=== PATIENT | male | born 1970 | race Caucasian/White ===

== ENCOUNTER 2017-02-12 17:28 | Emergency (ER) | payer SELFPAY ==
[~2017-02-12] VITALS: Ht 180.3 cm; Wt 68.0 kg
[2017-02-12 17:29] VITALS: BP 120/77; PULSE 123; RESP 13; TEMP 99.8; O2SAT 98
[2017-02-12] MEDS ORDERED: SODIUM CHLOR 0.9% 1000 ML INJ 1,000 ML IV SCH (18:50)
--- NOTE | 2017-02-12 18:55 | PD ---
HPI Chief Complaint: Abdominal Pain Time Seen by Provider: 18:32 Travel History International Travel<30 days: No Contact w/Intl Traveler<30days: No Traveled to known affect area: No History of Present Illness HPI The patient is a 46-year-old male who presents emergency department for abdominal pain. Patient has a two-week history of right sided flank pain that is sharp, constant, occasionally worse with bending over, and assisted with nausea and vomiting. The patient denies any diarrhea or change in bowel habits. The patient's last bowel movement was 2 days ago, normal per patient's report. Patient does complain of "tea-colored urine "as well as mild dysuria. The patient denies any history of kidney stones, does have a history of hepatitis C from prior IVDA. The patient denies any fever, chills, or sweats. The patient does have a history of similar abdominal pain 3-4 years ago and states he was admitted to the hospital for 40 days, had multiple tests performed there is no definitive reason for his abdominal pain. The patient does not currently have a primary physician. He denies any associated chest pain or shortness of breath. PFSH Past Medical History Hx Anticoagulant Therapy: No Arthritis: Yes Depression: Yes Cancer: No Cardiovascular Problems: Yes (HIGH BP) Chemotherapy: No Cirrhosis: Yes Cerebrovascular Accident: No Diabetes: No Diminished Hearing: No Endocrine: No Gastrointestinal Disorders: Yes (JAUNDICE; COLONIC MASS; FATTY LIVER) GERD: Yes Genitourinary: No Hepatitis: Yes (B) Hypertension: Yes Immune Disorder: No Musculoskeletal: No Neurologic: No Psychiatric: No Respiratory: No Immunizations Current: Yes Past Surgical History Abdominal Surgery: Yes (REPAIR FROM LACERATION) Other Surgery: Yes (TUBE PLACED IN ABDOMEN TO DRAIN FLUID) Social History Alcohol Use: No Tobacco Use: Yes Substance Use: No Allergies-Medications (Allergen,Severity, Reaction): Coded Allergies: No Known Allergies (Unverified , 02/12/17) Reported Meds & Prescriptions Reported Meds & Active Scripts Active No Active Prescriptions or Reported Medications Review of Systems Except as stated in HPI: all other systems reviewed are Neg General / Constitutional: No: Fever Cardiovascular: No: Chest Pain or Discomfort Respiratory: No: Shortness of Breath Gastrointestinal: Positive: Nausea, Vomiting, Abdominal Pain, No: Diarrhea, Constipation, Changes in Bowel Habits Genitourinary: Positive: Dysuria, Other (dark-colored urine) Musculoskeletal: No: Weakness Skin: No Rash Physical Exam Narrative GENERAL: Awake, alert, pleasant 46-year-old male who appears his stated age and is in no acute respiratory distress. SKIN: Focused skin assessment warm/dry. Multiple tattoos noted. HEAD: Atraumatic. Normocephalic. EYES: Pupils equal and round. No scleral icterus. No injection or drainage. ENT: No nasal bleeding or discharge. Slightly dry mixed membranes. NECK: Trachea midline. No JVD. CARDIOVASCULAR: Regular rate and rhythm. No murmur appreciated. RESPIRATORY: No accessory muscle use. Clear to auscultation. Breath sounds equal bilaterally. GASTROINTESTINAL: Abdomen soft, enlarged liver border. Mild tenderness of the right flank. No rebound tenderness. Back: Mild right CVA tenderness. MUSCULOSKELETAL: No obvious deformities. No clubbing. No cyanosis. No edema. NEUROLOGICAL: Awake and alert. No obvious cranial nerve deficits. Motor grossly within normal limits. Normal speech. PSYCHIATRIC: Appropriate mood and affect; insight and judgment normal. Data Data Last Documented VS Vital Signs Date Time Temp Pulse Resp B/P Pulse Ox O2 Delivery O2 Flow Rate FiO2 02/12/17 17:29 99.8 123 13 120/77 98 Orders Complete Blood Count With Diff (02/12/17 18:50) Comprehensive Metabolic Panel (02/12/17 18:50) Lipase (02/12/17 18:50) Lactic Acid (02/12/17 18:50) Urinalysis - C+S If Indicated (02/12/17 18:50) Ct Abd/Pel W/O Iv Contrast (02/12/17 18:50) Iv Access Insert/Monitor (02/12/17 18:50) Ecg Monitoring (02/12/17 18:50) Oximetry (02/12/17 18:50) Morphine Inj (Morphine Inj) (02/12/17 19:00) Ondansetron Inj (Zofran Inj) (02/12/17 19:00) Sodium Chlor 0.9% 1000 Ml Inj (Ns 1000 M (02/12/17 18:50) Sodium Chloride 0.9% Flush (Ns Flush) (02/12/17 19:00) Ketorolac Inj (Toradol Inj) (02/12/17 19:00) Labs Laboratory Tests Test 02/12/17 19:35 White Blood Count 7.1 TH/MM3 Red Blood Count 4.88 MIL/MM3 Hemoglobin 14.5 GM/DL Hematocrit 42.9 % Mean Corpuscular Volume 88.0 FL Mean Corpuscular Hemoglobin 29.7 PG Mean Corpuscular Hemoglobin 33.7 % Concent Red Cell Distribution Width 13.0 % Platelet Count 191 TH/MM3 Mean Platelet Volume 7.7 FL Neutrophils (%) (Auto) 64.9 % Lymphocytes (%) (Auto) 26.6 % Monocytes (%) (Auto) 7.3 % Eosinophils (%) (Auto) 1.0 % Basophils (%) (Auto) 0.2 % Neutrophils # (Auto) 4.6 TH/MM3 Lymphocytes # (Auto) 1.9 TH/MM3 Monocytes # (Auto) 0.5 TH/MM3 Eosinophils # (Auto) 0.1 TH/MM3 Basophils # (Auto) 0.0 TH/MM3 CBC Comment DIFF FINAL Differential Comment Urine Color YELLOW Urine Turbidity CLEAR Urine pH 6.5 Urine Specific [place] 1.004 Urine Protein NEG mg/dL Urine Glucose (UA) NEG mg/dL Urine Ketones NEG mg/dL Urine Occult Blood NEG Urine Nitrite NEG Urine Bilirubin NEG Urine Urobilinogen LESS THAN 2.0 MG/DL Urine Leukocyte Esterase NEG Microscopic Urinalysis Comment CULT NOT INDICATED Sodium Level 133 MEQ/L Potassium Level 3.6 MEQ/L Chloride Level 99 MEQ/L Carbon Dioxide Level 24.9 MEQ/L Anion Gap 9 MEQ/L Blood Urea Nitrogen 3 MG/DL Creatinine 0.89 MG/DL Estimat Glomerular Filtration 92 ML/MIN Rate Random Glucose 66 MG/DL Lactic Acid Level 0.9 mmol/L Calcium Level 8.8 MG/DL Total Bilirubin 0.3 MG/DL Aspartate Amino Transf 16 U/L (AST/SGOT) Alanine Aminotransferase 10 U/L (ALT/SGPT) Alkaline Phosphatase 67 U/L Total Protein 7.9 GM/DL Albumin 3.9 GM/DL Lipase 84 U/L [facility] Medical Decision Making Medical Screen Exam Complete: Yes Emergency Medical Condition: Yes Medical Record Reviewed: Yes Interpretation(s) Laboratory Tests Test 02/12/17 19:35 White Blood Count 7.1 TH/MM3 Red Blood Count 4.88 MIL/MM3 Hemoglobin 14.5 GM/DL Hematocrit 42.9 % Mean Corpuscular Volume 88.0 FL Mean Corpuscular Hemoglobin 29.7 PG Mean Corpuscular Hemoglobin 33.7 % Concent Red Cell Distribution Width 13.0 % Platelet Count 191 TH/MM3 Mean Platelet Volume 7.7 FL Neutrophils (%) (Auto) 64.9 % Lymphocytes (%) (Auto) 26.6 % Monocytes (%) (Auto) 7.3 % Eosinophils (%) (Auto) 1.0 % Basophils (%) (Auto) 0.2 % Neutrophils # (Auto) 4.6 TH/MM3 Lymphocytes # (Auto) 1.9 TH/MM3 Monocytes # (Auto) 0.5 TH/MM3 Eosinophils # (Auto) 0.1 TH/MM3 Basophils # (Auto) 0.0 TH/MM3 CBC Comment DIFF FINAL Differential Comment Urine Color YELLOW Urine Turbidity CLEAR Urine pH 6.5 Urine Specific [place] 1.004 Urine Protein NEG mg/dL Urine Glucose (UA) NEG mg/dL Urine Ketones NEG mg/dL Urine Occult Blood NEG Urine Nitrite NEG Urine Bilirubin NEG Urine Urobilinogen LESS THAN 2.0 MG/DL Urine Leukocyte Esterase NEG Microscopic Urinalysis Comment CULT NOT INDICATED Sodium Level 133 MEQ/L Potassium Level 3.6 MEQ/L Chloride Level 99 MEQ/L Carbon Dioxide Level 24.9 MEQ/L Anion Gap 9 MEQ/L Blood Urea Nitrogen 3 MG/DL Creatinine 0.89 MG/DL Estimat Glomerular Filtration 92 ML/MIN Rate Random Glucose 66 MG/DL Lactic Acid Level 0.9 mmol/L Calcium Level 8.8 MG/DL Total Bilirubin 0.3 MG/DL Aspartate Amino Transf 16 U/L (AST/SGOT) Alanine Aminotransferase 10 U/L (ALT/SGPT) Alkaline Phosphatase 67 U/L Total Protein 7.9 GM/DL Albumin 3.9 GM/DL Lipase 84 U/L Differential Diagnosis Differential diagnosis includes nephrolithiasis, pancreatitis, cholecystitis, biliary colic, choledocholithiasis, pyelonephritis, colitis, porphyria. Narrative Course IV was established, labs are drawn and sent, and the patient was placed on cardiac telemetry monitoring and continuous pulse oximetry monitoring. The patient was painter helper morphine, Toradol, Zofran, and IV fluids. UA was sent to lab. CT of the abdomen and pelvis was ordered. Labs are unremarkable. White count is normal. LFTs and lipase are normal. UA is negative. Lactic acid is normal. CT of the abdomen and pelvis was negative. The patient was reassessed at 8:40 PM. The patient's pain has improved, the patient's heart rate was down into the 80s. Patient is stable for discharge. Diagnosis Primary Impression: Abdominal pain Qualified Code: R10.31 - Right lower quadrant abdominal pain Patient Instructions: General Instructions Additional Instructions: Please provide a patient a copy of his lab results and CT results at discharge. Follow-up with your primary physician and/or gastroenterology if symptoms persist. Return for fever or progressing symptoms. Med/Other Pt SpecificInfo: Prescription(s) given Scripts Hydrocodone-Acetaminophen ([place])5-325 mg Tab1 Tab PO Q6H PRN (PAIN) #12 TAB Ref 0 Prov:Pablo Fox MD 02/12/17 Ondansetron Odt (Zofran Odt)4 Mg Tab4 Mg SL Q6HR PRN (Nausea/Vomiting) #7 TAB Ref 0 Prov:Pablo Fox MD 02/12/17 Disposition: 01 DISCHARGE HOME Condition: Stable Pablo Fox MD February 12, 2017 18:55
[2017-02-12] MEDS ORDERED: KETOROLAC TROMETHAMINE 30 MG/ML (IVP) VIAL IVP ONE (19:00)
[2017-02-12] MEDS ORDERED: SODIUM CHLORIDE 0.9% FLUSH 10 ML FLUSH IV FLUSH PRN (19:00)
[2017-02-12] MEDS ORDERED: MORPHINE SULFATE 4 MG/ML INJ IV PUSH ONE (19:00)
[2017-02-12] MEDS ORDERED: ONDANSETRON HCL 4 MG/2 ML VIAL IVP ONE (19:00)
--- NOTE | 2017-02-12 19:26 | RADRPT ---
EXAM DATE/TIME: 02/12/2017 19:09 [facility] COMPARISON: CT ABDOMEN & PELVIS W CONTRAST, October 22, 2015, 0:03. INDICATIONS : Right flank pain. ORAL CONTRAST: No oral contrast ingested. RADIATION DOSE: 5.52 CTDIvol (mGy) MEDICAL HISTORY : None SURGICAL HISTORY : None. ENCOUNTER: Initial ACUITY: 1 day PAIN SCALE: 5/10 LOCATION: Right flank TECHNIQUE: Volumetric scanning of the abdomen and pelvis was performed. Using automated exposure control and ad justment of the mA and/or kV according to patient size, radiation dose was kept as low as reasonably achievable to obtain optimal diagnostic quality images. FINDINGS: LOWER LUNGS: The visualized lower lungs are clear. LIVER: Homogeneous density without lesion. There is no dilation of the biliary tree. No calcified gallston es. SPLEEN: Normal size without lesion. PANCREAS: Within normal limits. KIDNEYS: No renal or ureteral calculus or hydronephrosis/hydroureter. Patchy cortical thinning/scarring of the right kidney is unchanged. No acute inflammatory changes are demonstrated. ADRENAL GLANDS: Within normal limits. VASCULAR: There is no aortic aneurysm. BOWEL/MESENTERY: The stomach, small bowel, and colon demonstrate no acute abnormality. There is no free intraperitone al air or fluid. The appendix is well-visualized, normal. ABDOMINAL WALL: Within normal limits. RETROPERITONEUM: There is no lymphadenopathy. BLADDER: No wall thickening or mass. REPRODUCTIVE: Within normal limits. INGUINAL: There is no lymphadenopathy or hernia. MUSCULOSKELETAL: No acute bony abnormality seen. Degenerative changes of the lower lumbar spine and stable benign-appe aring sclerotic foci in the iliac bones again noted. CONCLUSION: No acute abnormality. Gui Cornelius MD on February 12, 2017 at 19:22 Board Certified Radiologist. This report was verified electronically.
[2017-02-12 19:50] LABS: AUTOMATED NEUTROPHIL # 4.6 TH/MM3 (1.8-7.7); BASOPHIL % 0.2 % (0.0-2.0); BLOOD, URINE NEG (NEG); EOSINOPHIL # 0.1 TH/MM3 (0-0.4); GLUCOSE,URINE NEG (NEG); HEMATOCRIT 42.9 % (39.0-51.0); HEMO FLAGS DIFF FINAL; KETONE, URINE NEG (NEG); LYMPH % 26.6 % (9.0-44.0); LYMPHOCYTE # 1.9 TH/MM3 (1.0-4.8); MEAN CORPUSCULAR HEMOGLOBIN 29.7 PG (27.0-34.0); MEAN CORPUSCULAR HGB CONC 33.7 % (32.0-36.0); MONO % 7.3 % (0.0-8.0); NEUT % 64.9 % (16.0-70.0); NITRITE,URINE NEG (NEG); PH, URINE 6.5 (5.0-8.5); PLATELET COUNT 191 TH/MM3 (150-450); RED BLOOD COUNT 4.88 MIL/MM3 (4.50-5.90); URINE COLOR YELLOW (YELLW/STRAW); WHITE BLOOD COUNT 7.1 TH/MM3 (4.0-11.0)
[2017-02-12 19:54] LABS: COMMENT (UR) CULT NOT INDICATED; CULTURE IF INDICATED CULT NOT INDICATED
[2017-02-12 20:20] LABS: ANION GAP 9 MEQ/L (5-15); AST (GOT) 16 U/L (15-37); BICARBONATE 24.9 MEQ/L (21.0-32.0); BLOOD UREA NITROGEN 3 MG/DL (7-18); CHLORIDE 99 MEQ/L (98-107); GLOMERULAR FILTRATION RATE 92 ML/MIN (>89); POTASSIUM 3.6 MEQ/L (3.5-5.1); SODIUM (NA) 133 MEQ/L (136-145)
[2017-02-12 20:23] LABS: ALKALINE PHOSPHATASE 67 U/L (45-117); ALT (GPT) 10 U/L (12-78); TOTAL BILIRUBIN ADULT 0.3 MG/DL (0.2-1.0)
[2017-02-12] MEDS ORDERED: ZOFR4TAB3 SL (20:43)
[2017-02-12] MEDS ORDERED: NORC5TAB PO (20:43)
== END 2017-02-12 21:13 | disposition home or self-care (01) ==
LOC: NEPD 17:28
DX: R10.31 Right lower quadrant pain (principal); I10 Essential (primary) hypertension; Z72.0 Tobacco use; R30.0 Dysuria
CPT/HCPCS: 74176; 80053; 81001; 83605; 83690; 85025; 96361; 96374; 96375; 99284; J1885; J2270; J2405; J7030

== ENCOUNTER 2017-03-24 11:15 | Emergency (ER) | payer SELFPAY ==
[~2017-03-24] VITALS: Ht 180.3 cm; Wt 73.0 kg
[~2017-03-24 11:15] MED LIST: NORC5TAB PO; ZOFR4TAB3 SL
[2017-03-24 11:17] VITALS: BP 147/97; PULSE 100; RESP 20; TEMP 98.1; O2SAT 100
--- NOTE | 2017-03-24 11:23 | PD ---
Physical Exam Date Seen by Provider: Mar 24, 2017 Time Seen by Provider: 11:22 Narrative 46 yo male here for evaluation of left ankle pain for 1 week. No injury. Just hurts per patient. Per patient it seems to shot up. No chest pain or SOB. States having numbness and burning. Pain is 6/10. No rashes. Hurts to walk. Vitals are stable in triage. Awaiting bed placement. Data Data Last Documented VS Vital Signs Date Time Temp Pulse Resp B/P Pulse Ox O2 Delivery O2 Flow Rate FiO2 03/24/17 11:17 98.1 100 20 147/97 100 Room Air [facility] Medical Record Reviewed: Yes Supervised Visit with JASMEET: No Hima Potts Mar 24, 2017 11:23
[2017-03-24 11:30] VITALS: BP 136/88; PULSE 97; RESP 14; TEMP 98.9; O2SAT 99
--- NOTE | 2017-03-24 11:41 | PD ---
HPI Chief Complaint: Injury Time Seen by Provider: 11:38 Travel History International Travel<30 days: No Contact w/Intl Traveler<30days: No Traveled to known affect area: No History of Present Illness HPI 46-year-old male presents to the emergency department for evaluation of left ankle pain for 1 week. Patient states that he mowed the lawn and started with mild pain after, but worsened over the past week. He denies a traumatic injury. Patient states the pain is worse with walking. Patient denies any fevers or chills. He has no chronic medical problems and takes no prescribed medications. Patient denies any history of IVDU. Patient denies any swelling or redness. He denies any history of ankle injury in the past. Patient states he has been taking Naprosyn at home with little improvement. Patient denies any chest pain or shortness breath. No abdominal pain. No nausea, vomiting, diarrhea. He has no other complaints at this time. PFSH Past Medical History Hx Anticoagulant Therapy: No Arthritis: Yes Depression: Yes Cancer: No Cardiovascular Problems: Yes (HIGH BP) Chemotherapy: No Cirrhosis: Yes Cerebrovascular Accident: No Diabetes: No Diminished Hearing: No Endocrine: No Gastrointestinal Disorders: Yes (JAUNDICE; COLONIC MASS; FATTY LIVER) GERD: Yes Genitourinary: No Hepatitis: Yes (B) Hypertension: Yes Immune Disorder: No Musculoskeletal: No Neurologic: No Psychiatric: No Respiratory: No Immunizations Current: Yes Past Surgical History Abdominal Surgery: Yes (REPAIR FROM LACERATION) Other Surgery: Yes (TUBE PLACED IN ABDOMEN TO DRAIN FLUID) Social History Alcohol Use: No Tobacco Use: Yes (vaping) Substance Use: No (hx of iv drug use) Allergies-Medications (Allergen,Severity, Reaction): Coded Allergies: No Known Allergies (Unverified , 03/24/17) Reported Meds & Prescriptions Reported Meds & Active Scripts Active No Active Prescriptions or Reported Medications Review of Systems Except as stated in HPI: all other systems reviewed are Neg Physical Exam Narrative GENERAL: Well-nourished, well-developed male patient, afebrile. SKIN: Focused skin assessment warm/dry. No erythema or warmth over left ankle. No swelling noted. HEAD: Normocephalic. Atraumatic. EYES: No scleral icterus. No injection or drainage. NECK: Supple, trachea midline. No JVD or lymphadenopathy. CARDIOVASCULAR: Regular rate and rhythm without murmurs, gallops, or rubs. Left pedal pulse is 2+. RESPIRATORY: Breath sounds equal bilaterally. No accessory muscle use. Lungs sounds clear to auscultation. GASTROINTESTINAL: Abdomen soft, non-tender, nondistended. MUSCULOSKELETAL: No cyanosis, or edema. Patient has no reproducible tenderness , but points to the lateral ankle when after his pain is. He has full active and passive range of motion without stiffness or pain. Data Data Last Documented VS Vital Signs Date Time Temp Pulse Resp B/P Pulse Ox O2 Delivery O2 Flow Rate FiO2 03/24/17 11:30 98.9 97 14 136/88 99 Room Air Orders Ankle, Complete ([id number]) (03/24/17 ) [facility] Medical Decision Making Medical Screen Exam Complete: Yes Emergency Medical Condition: Yes Medical Record Reviewed: Yes Differential Diagnosis Ankle sprain versus muscle strain versus arthritis versus unlikely fracture Narrative Course 46-year-old male presents to the emergency department for evaluation of left ankle pain for 1 week. He denies a traumatic injury. No evidence of septic joint on exam. No evidence of cellulitis. Physical exam is reassuring. X-ray of the left ankle is ordered and pending. X-ray of the left ankle shows no acute abnormality. Patient is instructed to continue Naproxen as directed until gone. Patient is provided levi bandage. He is to follow up with his primary care physician. The patient was discharged in stable condition with instructions, including return instructions and follow up instructions. Diagnosis Primary Impression: SPRAIN OF UNSPECIFIED LIGAMENT OF LEFT ANKLE, INIT ENCNTR Referrals: Primary Care Physician call for appointment Patient Instructions: Ankle Sprain (ED), General Instructions Additional Instructions: Take naproxen as directed as needed for pain. Wear Levi bandage for support. Elevate. Follow-up with your primary care physician. Return to the emergency department for any acute worsening of symptoms. Med/Other Pt SpecificInfo: Prescription(s) given, No Change to Meds Scripts Naproxen 375 Mg [id number] Mg PO BID PRN (PAIN SCALE 1 TO 10) #20 TAB Ref 0 Prov:Noemi Cabrales 03/24/17 Disposition: 01 DISCHARGE HOME Condition: Stable Noemi Cabrales Mar 24, 2017 11:41
[2017-03-24] MEDS ORDERED: NAPR375T PO (12:13)
--- NOTE | 2017-03-24 12:14 | PD ---
Data Data Last Documented VS Vital Signs Date Time Temp Pulse Resp B/P Pulse Ox O2 Delivery O2 Flow Rate FiO2 03/24/17 11:30 98.9 97 14 136/88 99 Room Air Orders Ankle, Complete ([id number]) (03/24/17 ) [facility] Supervised Visit with JASMEET: Yes Narrative Course The history, exam, and medical decision-making in the associated mid-level provider note were completed with my assistance. I reviewed and agree with the findings presented. I attest that I had a [id number] encounter with the patient on the same day, and personally performed and documented my assessment and findings in the medical record. *My assessment and Findings: 46-year-old man, left ankle pain starting about 7-10 days ago after he mowed the grass. No clear injury. There is no redness swelling. Pain is located on the lateral aspect of it. Suspect a strain or sprain. He states it's worse when he lays down. I think he says focusing on a more in that setting. Nonetheless x-ray looks reassuring. Recommend outpatient follow-up. Scripts No Active Prescriptions or Reported Meds Crispin Anthony MD Mar 24, 2017 12:14
--- NOTE | 2017-03-24 12:32 | RADRPT ---
EXAM DATE/TIME: 03/24/2017 11:49 [facility] COMPARISON: No previous studies available for comparison. INDICATIONS : Left ankle pain, no injury. MEDICAL HISTORY : None. SURGICAL HISTORY : None. ENCOUNTER: Initial ACUITY: 1 week PAIN SCORE: 9/10 LOCATION: Left lateral ankle FINDINGS: Three view exam was performed of the left ankle. The bony structures are in normal alignment. No ev idence of fracture, dislocation, or soft tissue swelling. The ankle mortise is intact. No radiopaqu e foreign bodies are seen. Bony mineralization is normal. CONCLUSION: Negative for fracture. Doug Trivedi MD FACR on March 24, 2017 at 12:25 Board Certified Radiologist. This report was verified electronically.
== END 2017-03-24 12:24 | disposition home or self-care (01) ==
LOC: NEPD 11:15
DX: S93.402A Sprain of unspecified ligament of left ankle, initial encounter (principal); M19.90 Unspecified osteoarthritis, unspecified site; F32.9 Major depressive disorder, single episode, unspecified; K74.60 Unspecified cirrhosis of liver; K21.9 Gastro-esophageal reflux disease without esophagitis; B19.10 Unspecified viral hepatitis B without hepatic coma; I10 Essential (primary) hypertension; X58.XXXA Exposure to other specified factors, initial encounter
CPT/HCPCS: 73610; 99283

== ENCOUNTER 2017-11-04 15:03 | Emergency (ER) | payer SELFPAY ==
[~2017-11-04] VITALS: Ht 180.3 cm; Wt 72.7 kg
[~2017-11-04 15:03] MED LIST changes: +NAPR-855 PO; -NORC5TAB PO; -ZOFR4TAB3 SL
[2017-11-04 15:05] VITALS: BP 163/108; PULSE 87; RESP 18; TEMP 98.3; O2SAT 100
--- NOTE | 2017-11-04 17:53 | PD ---
HPI Chief Complaint: Abdominal Pain Time Seen by Provider: 17:52 Travel History International Travel<30 days: No Contact w/Intl Traveler<30days: No Traveled to known affect area: No History of Present Illness HPI 47-year-old male came to the emergency room with history of right lower quadrant pain that has been going on for past 5 days. Patient says that he went to the emergency room at [facility] 1-2 days ago. They did blood tests, urine analysis and CAT scan of his abdomen and pelvis. He says that initially he was given IV antibiotic in the emergency room but after all the test results came back he was just discharged home. He was not sent home on any medications. Patient is back here because the pain still continues. [facility] Past Medical History Narrative Medical List of his past medical, surgical, social and family history is reviewed from the nursing note. Hx Anticoagulant Therapy: No Arthritis: Yes Depression: Yes Cancer: No Cardiovascular Problems: Yes (HIGH BP) Chemotherapy: No Cirrhosis: Yes Cerebrovascular Accident: No Diabetes: No Diminished Hearing: No Endocrine: No Gastrointestinal Disorders: Yes (JAUNDICE; COLONIC MASS; FATTY LIVER) GERD: Yes Genitourinary: No Hepatitis: Yes (B) Hypertension: Yes Immune Disorder: No Musculoskeletal: No Neurologic: No Psychiatric: No Respiratory: No Immunizations Current: Yes Past Surgical History Abdominal Surgery: Yes (REPAIR FROM LACERATION) Other Surgery: Yes (TUBE PLACED IN ABDOMEN TO DRAIN FLUID) Social History Alcohol Use: No Tobacco Use: Yes (vaping) Substance Use: No (hx of iv drug use) Allergies-Medications (Allergen,Severity, Reaction): Coded Allergies: No Known Allergies (Unverified , 03/24/17) Comments No known drug allergies. Reported Meds & Prescriptions Reported Meds & Active Scripts Active No Active Prescriptions or Reported Medications Narrative Medication List of his home medications reviewed from the nursing note. Review of Systems Except as stated in HPI: all other systems reviewed are Neg Gastrointestinal: Positive: Abdominal Pain Physical Exam Narrative GENERAL: Awake, alert, mild distress, anxious SKIN: Focused skin assessment warm/dry. HEAD: Atraumatic. Normocephalic. EYES: Pupils equal and round. No scleral icterus. No injection or drainage. ENT: No nasal bleeding or discharge. Mucous membranes pink and moist. NECK: Trachea midline. No JVD. CARDIOVASCULAR: Regular rate and rhythm. No murmur appreciated. RESPIRATORY: No accessory muscle use. Clear to auscultation. Breath sounds equal bilaterally. GASTROINTESTINAL: Abdomen soft, non-tender, nondistended. Hepatic and splenic margins not palpable. MUSCULOSKELETAL: No obvious deformities. No clubbing. No cyanosis. No edema. NEUROLOGICAL: Awake and alert. No obvious cranial nerve deficits. Motor grossly within normal limits. Normal speech. PSYCHIATRIC: Appropriate mood and affect; insight and judgment normal. Data Data Last Documented VS Vital Signs Date Time Temp Pulse Resp B/P (MAP) Pulse Ox O2 Delivery O2 Flow Rate FiO2 11/04/17 19:13 98.8 88 18 158/88 (111) 98 11/04/17 18:07 Room Air Orders Orders Complete Blood Count With Diff (11/04/17 15:44) Comprehensive Metabolic Panel (11/04/17 15:44) Lipase (11/04/17 15:44) Prothrombin Time / Inr (Pt) (11/04/17 15:44) Act Partial Throm Time (Ptt) (11/04/17 15:44) Urinalysis - C+S If Indicated (11/04/17 15:44) Ed Discharge Order (11/04/17 18:53) Labs Laboratory Tests Test 11/04/17 17:30 White Blood Count 10.1 TH/MM3 Red Blood Count 4.62 MIL/MM3 Hemoglobin 15.1 GM/DL Hematocrit 42.6 % Mean Corpuscular Volume 92.1 FL Mean Corpuscular Hemoglobin 32.5 PG Mean Corpuscular Hemoglobin Concent 35.3 % Red Cell Distribution Width 13.5 % Platelet Count 260 TH/MM3 Mean Platelet Volume 6.9 FL Neutrophils (%) (Auto) 70.0 % Lymphocytes (%) (Auto) 23.4 % Monocytes (%) (Auto) 5.3 % Eosinophils (%) (Auto) 0.9 % Basophils (%) (Auto) 0.4 % Neutrophils # (Auto) 7.1 TH/MM3 Lymphocytes # (Auto) 2.4 TH/MM3 Monocytes # (Auto) 0.5 TH/MM3 Eosinophils # (Auto) 0.1 TH/MM3 Basophils # (Auto) 0.0 TH/MM3 CBC Comment DIFF FINAL Differential Comment Prothrombin Time 10.7 SEC Prothromb Time International Ratio 1.1 RATIO Activated Partial Thromboplast Time 27.4 SEC Urine Color LIGHT-YELLOW Urine Turbidity CLEAR Urine pH 6.0 Urine Specific [place] 1.004 Urine Protein NEG mg/dL Urine Glucose (UA) NEG mg/dL Urine Ketones NEG mg/dL Urine Occult Blood NEG Urine Nitrite NEG Urine Bilirubin NEG Urine Urobilinogen LESS THAN 2.0 MG/DL Urine Leukocyte Esterase NEG Microscopic Urinalysis Comment CULT NOT INDICATED Blood Urea Nitrogen 6 MG/DL Creatinine 0.77 MG/DL Random Glucose 83 MG/DL Total Protein 8.5 GM/DL Albumin 4.7 GM/DL Calcium Level 9.0 MG/DL Alkaline Phosphatase 60 U/L Aspartate Amino Transf (AST/SGOT) 21 U/L Alanine Aminotransferase (ALT/SGPT) 9 U/L Total Bilirubin 0.3 MG/DL Sodium Level 138 MEQ/L Potassium Level 3.8 MEQ/L Chloride Level 106 MEQ/L Carbon Dioxide Level 27.9 MEQ/L Anion Gap 4 MEQ/L Estimat Glomerular Filtration Rate 108 ML/MIN Lipase 142 U/L MDM Medical Decision Making Medical Screen Exam Complete: Yes Emergency Medical Condition: Yes Medical Record Reviewed: Yes Differential Diagnosis Abdominal pain, NOS, UTI Narrative Course 6:51 PM blood test results of back and within acceptable limits. We [facility] asked [facility] to send copies of his test results and no fax has been sent. However given the fact that his blood test results look within normal limits. And the fact that he was discharged from [facility] after the CAT scan tells me that he probably did not have anything consequential. I'm comfortable at this point discharging him. Procedures EKG Prior to Arrival: No Diagnosis Primary Impression: Abdominal pain Qualified Codes: R10.31 - Right lower quadrant pain Referrals: Primary Care Physician Additional Instructions: Take Tylenol/ibuprofen/Motrin/Advil for pain. Follow-up with your primary care. Scripts No Active Prescriptions or Reported Meds Disposition: DISCHARGE HOME Condition: Stable Kyaw Adam MD Nov 04, 2017 17:53
[2017-11-04 18:07] VITALS: BP 179/113; PULSE 84; RESP 17; TEMP 99.2; O2SAT 99
[2017-11-04 18:11] LABS: BILIRUBIN, URINE NEG (NEG); BLOOD, URINE NEG (NEG); GLUCOSE,URINE NEG (NEG); KETONE, URINE NEG (NEG); NITRITE,URINE NEG (NEG); URINE COLOR LIGHT-YELLOW (YELLW/STRAW); URINE LEUKOCYTE ESTERASE NEG (NEG)
[2017-11-04 18:13] LABS: AUTOMATED NEUTROPHIL # 7.1 TH/MM3 (1.8-7.7); BASOPHIL % 0.4 % (0.0-2.0); EOSINOPHIL # 0.1 TH/MM3 (0-0.4); EOSINOPHIL % 0.9 % (0.0-4.0); HEMATOCRIT 42.6 % (39.0-51.0); HEMOGLOBIN 15.1 GM/DL (13.0-17.0); LYMPH % 23.4 % (9.0-44.0); LYMPHOCYTE # 2.4 TH/MM3 (1.0-4.8); MEAN CELL VOLUME 92.1 FL (80.0-100.0); MEAN CORPUSCULAR HEMOGLOBIN 32.5 PG (27.0-34.0); MEAN CORPUSCULAR HGB CONC 35.3 % (32.0-36.0); MEAN PLATELET VOLUME 6.9 FL (7.0-11.0); MONO % 5.3 % (0.0-8.0); MONOCYTE # 0.5 TH/MM3 (0-0.9); PLATELET COUNT 260 TH/MM3 (150-450); RED BLOOD COUNT 4.62 MIL/MM3 (4.50-5.90); RED CELL DISTRIBUTION WIDTH 13.5 % (11.6-17.2); WHITE BLOOD COUNT 10.1 TH/MM3 (4.0-11.0)
[2017-11-04 18:20] LABS: INTERNATIONAL NORMALIZED RATIO 1.1 RATIO; PROTHROMBIN TIME - PATIENT 10.7 SEC (9.8-11.6)
[2017-11-04 18:31] LABS: ALBUMIN 4.7 GM/DL (3.4-5.0); ALT (GPT) 9 U/L (12-78); AST (GOT) 21 U/L (15-37); BICARBONATE 27.9 MEQ/L (21.0-32.0); BLOOD UREA NITROGEN 6 MG/DL (7-18); CHLORIDE 106 MEQ/L (98-107); CREATININE 0.77 MG/DL (0.60-1.30); GLOMERULAR FILTRATION RATE 108 ML/MIN (>89); GLUCOSE,RANDOM 83 MG/DL (74-106); SODIUM (NA) 138 MEQ/L (136-145)
[2017-11-04 18:34] LABS: ALKALINE PHOSPHATASE 60 U/L (45-117); TOTAL BILIRUBIN ADULT 0.3 MG/DL (0.2-1.0); TOTAL PROTEIN 8.5 GM/DL (6.4-8.2)
[2017-11-04 19:13] VITALS: BP 158/88; TEMP 98.8
== END 2017-11-04 19:19 | disposition home or self-care (01) ==
LOC: NEPD 15:03
DX: R10.31 Right lower quadrant pain (principal); Z72.0 Tobacco use
CPT/HCPCS: 80053; 81001; 83690; 85025; 85610; 85730; 99283